=== PATIENT | female | born 1935 | race Two or more races ===

== ENCOUNTER 2017-04-06 11:36 | Outpatient (CLI) | payer OTHER ==
[~2017-04-06 11:36] MED LIST: DILTIAZEM ER240 M1 PO; DIPYRIDAMOLE50 MG PO; DOXAZOSIN MESYLA4 MG PO; HYZAAR 100/25 T1 TAB PO; LEVOTHROID137 MCG PO; SINGULAIR10 MG PO; TALADINE150 MG PO; ZEMPLAR1 MCG PO; ZYLOPRIM100 MG PO
== END 2017-04-06 12:34 | disposition home or self-care (01) ==
LOC: RAD 501 11:36
DX: M25.551 Pain in right hip (principal); M25.552 Pain in left hip

== ENCOUNTER 2018-09-15 22:15 | Inpatient (IN) | payer OTHER ==
[~2018-09-15] VITALS: Ht 157.5 cm; Wt 59.0 kg
== END 2018-09-22 16:35 | DRG 690 ==
LOC: ER 22:15 → SEC-K 09-16 12:18 → MEDJ 09-16 12:18
PROVIDERS: ADMIT Internal Medicine
PROC: BW40ZZZ Ultrasonography of Abdomen (ICD-10-PCS; principal; 2018-09-17)
PROC: BW4GZZZ Ultrasonography of Pelvic Region (ICD-10-PCS; 2018-09-17)
DX: N39.0 Urinary tract infection, site not specified (principal); N18.4 Chronic kidney disease, stage 4 (severe); R65.10 Systemic inflammatory response syndrome (SIRS) of non-infectious origin without acute organ dysfunction; I12.9 Hypertensive chronic kidney disease with stage 1 through stage 4 chronic kidney disease, or unspecified chronic kidney disease; E86.0 Dehydration; E03.8 Other specified hypothyroidism; I35.0 Nonrheumatic aortic (valve) stenosis; D72.828 Other elevated white blood cell count; M10.9 Gout, unspecified; J45.998 Other asthma; K21.9 Gastro-esophageal reflux disease without esophagitis; M54.5 Low back pain; Z88.0 Allergy status to penicillin; Z88.2 Allergy status to sulfonamides

== ENCOUNTER 2020-02-16 01:59 | Inpatient (IN) | payer OTHER ==
[~2020-02-16] VITALS: Ht 160 cm; Wt 63.5 kg
[2020-02-16] MEDS ORDERED: LOSARTAN POTAS100 MG PO (02:29)
--- NOTE | 2020-02-16 02:32 | NUR ---
PTE REFIERE QUE EL MEDICO DE CABEZERA EL DR.VICOR JOINER EL NEFROLOGO LA ENVIO A LA MIGNON DE EMERGNEICA POR ANEMIA. PE LLEGA EN AMBULANCIA ALERTA CONCIENTE Y TRANQUILA EN COMPANIA DE FAMILIAR..
--- NOTE | 2020-02-16 04:29 | NUR ---
SE ORIENTA PTE Y FAMILIAR SOBRE EL TRATAMIENTO ORDENADO POR EL DR SWEET PTE ALERTA Y CONCIENTE POR 3 SE RALIZAN MUESTRAS DE LABORTORIO Y SE ENVIA TUBO HOMAR AL BANCO DE REBEKAH SE HABLA CON RAVI WALSH
--- NOTE | 2020-02-16 07:35 | NUR ---
SE RECIBE PTE FEMENINA ALERTA Y ORIENTADA EN LAS EV ESFERAS EN COMPANIA DE FAMILIAR. SE OSBERVA CON BUEN PATRON RESPIRATORIO Y NO REFIERE DOLOR AL MOMENTO. VENOPUNCION PATENTE, ARTEMIO DE EDEMA Y ERITEMA RECIBEIENDO TERAPIA DE IVFS 0.45NSS BAJANDO A 100ML/HR. PENDIENTE COLECCION DE MUESTRA DE U/A PET CON ENVASE Y DEBIDAMENTE ORIENTADA. PTE CON DOS UNIDADES DE PRBC'S EN HOLD.
--- NOTE | 2020-02-16 11:59 | NUR ---
SE COLOCA SHAKIRA CON LA ASISTENCIA DE MS S [place], PTE ORINA POR SI MISMA. SE ENVIA MUESTRA DE U/A AL LABORATORIO ROTULADA, PENDIENTE AL RESULTADO DE LAORATORIO.
[2020-02-21] MEDS ORDERED: POM (MEDICAMENTO EN PO (15:19)
[2020-02-21] MEDS ORDERED: RETACRIT10000 UNIT SUBCUTANEO (15:19)
[2020-02-21] MEDS ORDERED: LEVOTHYROXINE150 MCG PO (15:19)
[2020-02-21] MEDS ORDERED: CARDIZEM CD120 MG PO (15:19)
[2020-02-21] MEDS ORDERED: FOLIC ACID1 MG PO (15:19)
[2020-02-21] MEDS ORDERED: PROTEINEX-18 LI30 ML PO (15:19)
[2020-02-21] MEDS ORDERED: ZYLOPRIM100 M1 PO (15:19)
[2020-02-21] MEDS ORDERED: MONTELUKAST SOD10 MG PO (15:19)
== END 2020-02-21 17:35 | disposition home or self-care (01) | DRG 683 ==
LOC: ER 01:59 → SURG 14:59 → MEDJ 02-20 19:02
PROVIDERS: ADMIT Internal Medicine; ATTEND Internal Medicine
PROC: BW40ZZZ Ultrasonography of Abdomen (ICD-10-PCS; 2020-02-17)
PROC: 30233N1 Transfusion of Nonautologous Red Blood Cells into Peripheral Vein, Percutaneous Approach (ICD-10-PCS; principal; 2020-02-18)
DX: N17.9 Acute kidney failure, unspecified (principal); G72.81 Critical illness myopathy; D63.1 Anemia in chronic kidney disease; I12.9 Hypertensive chronic kidney disease with stage 1 through stage 4 chronic kidney disease, or unspecified chronic kidney disease; N18.31 Chronic kidney disease, stage 3a; Z53.29 Procedure and treatment not carried out because of patient's decision for other reasons; E87.5 Hyperkalemia; E86.0 Dehydration; E03.9 Hypothyroidism, unspecified; Z20.828 Contact with and (suspected) exposure to other viral communicable diseases